=== PATIENT | male | born 1995 | race Caucasian/White ===

== ENCOUNTER 2021-08-21 03:55 | Emergency (ER) | payer OTHER, SELFPAY ==
[2021-08-21 03:56] VITALS: BP 140/54; PULSE 116; RESP 22; TEMP 36.8; O2SAT 97; BMI 34.0
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
--- NOTE | 2021-08-21 04:49 | PC.NURSE ---
Pt. is refusing any care other than having the scans done. Pt. screamed and yelled profanities at the doctor while he was trying to fix the wound.
== END 2021-08-21 05:03 | disposition home or self-care (01) ==
PROVIDERS: Emergency Provider Emergency Medicine
DX: S01.01XA Laceration without foreign body of scalp, initial encounter (principal); V47.6XXA Car passenger injured in collision with fixed or stationary object in traffic accident, initial encounter
CPT/HCPCS: 12004; 70450; 72125; 99282

== ENCOUNTER 2022-07-30 04:30 | Observation (INO) | payer SELFPAY ==
[2022-07-30] VITALS (7 sets, daily range): BP systolic 106–147; BP diastolic 65–88; PULSE 69–116; RESP 16–18; TEMP 36.5–37.7; O2SAT 95–98; BMI 31.7
--- NOTE | 2022-07-30 04:54 | CTR_ITS ---
PROCEDURE INFORMATION: Exam: CT Abdomen And Pelvis With Contrast Exam date and time: 07/30/2022 5:08 AM Age: 27 years old Clinical indication: Nausea and vomiting; Abdominal pain; Localized; Right lower quadrant (rlq); Patient HX: C/O rlq pain with n/v. ; Additional info: Abd pain TECHNIQUE: Imaging protocol: Computed tomography of the abdomen and pelvis with contrast. Radiation optimization: All CT scans at this facility use at least one of these dose optimization techniques: automated exposure control; mA and/or kV adjustment per patient size (includes targeted exams where dose is matched to clinical indication); or iterative reconstruction. Contrast material: OMNI 350; Contrast volume: 100 ml; Contrast route: INTRAVENOUS (IV); COMPARISON: No relevant prior studies available. RADIATION DOSE METRICS: Total DLP (mGy-cm): 820.63 FINDINGS: Lungs: The visualized lung bases are clear. Liver: Unremarkable. No enhancing mass. Gallbladder and bile ducts: No calcified gallstones or biliary dilation identified. Pancreas: Unremarkable with no suspicious mass. No ductal dilation. Spleen: The spleen is not enlarged. No suspicious enhancing mass is noted. Adrenal glands: Normal. No mass. Kidneys and ureters: No solid renal mass or hydronephrosis. Minute right renal cyst. Stomach and bowel: No small bowel obstruction or free air. No overt mucosal thickening. Appendix: The appendix is dilated and inflamed. There is moderate surrounding fat stranding. It dilates up to about 12 mm with appendicolith. No abscess or free air. Intraperitoneal space: See Appendix finding. Extremely minimal pelvic free fluid. Vasculature: No AAA or acute vascular lesion identified. Lymph nodes: No enlarged lymph nodes. Urinary bladder: Unremarkable as visualized. Reproductive: Unremarkable as visualized. Bones/joints: No acute fracture. Likely nonacute mild compressions at L3 and L2. Soft tissues: Tiny fat umbilical hernia. CT/CT abdomen pelvis w con* [id number] IMPRESSION: 1. Acute appendicitis with no abscess or free air. 2. A few mild lumbar compressions are likely nonacute. THIS REPORT CONTAINS FINDINGS THAT MAY BE CRITICAL TO PATIENT CARE. The findings were verbally communicated via telephone conference at 5:25 AM MARKETING COPYWRITER on 07/30/[address] Urbano. The findings were acknowledged and understood. COMMENTS: Consistent with the [employer]'s Incidental Findings Committee white paper (J Am Luis Fernando Radiol 2018): Any incidental renal lesion less than 1 cm or classified as too small to characterize, or any incidental cystic renal lesion characterized as simple-appearing, is likely benign. No follow-up imaging is recommended for these lesions per consensus recommendations based on imaging criteria.
--- NOTE | 2022-07-30 04:58 | ED_ITS ---
HPI - Abdominal Pain General: Chief Complaint: Abdominal Pain Stated Complaint: abdominal pain, vommiting, fever Time Seen by Provider: 07/30/22 04:52 Source: patient Mode of arrival: ambulatory Limitations: no limitations History of Present Illness: 19-year-old male states has been having right lower quadrant pain over the last day has also been having fevers he states his pain is worsening throughout the day its tender to touch. He states is worse with walking and has had no vomiting no diarrhea. Associated Symptoms: Reports fever(s); Denies dysuria Review of Systems Const: Reports: fever(s) Eyes: Denies: blurry vision or eye discomfort ENMT: Denies: throat pain or dental pain Card: Denies: chest pain Resp: Denies: dyspnea GI: Reports: abdominal pain : Denies: dysuria Musc: Denies: neck pain or back pain Skin/Breast: Denies: rash Neuro: Denies: headache(s) Psych: Denies: depression Casey/Lymph: Denies: easy bruising All/Imm: Denies: urticaria PFSH ED PFSH: Medical History (Updated 07/30/22 @ 05:29 by Brayden Urbano MD) No pertinent past medical history Social History Smoking and tobacco status: never smoked Physical Exam Const: COMMON NORMALS: no acute distress, patient oriented x3 and healthy appearing HENMT: COMMON NORMALS: normocephalic and atraumatic HEAD & SCALP: normocephalic and atraumatic Eye: COMMON NORMALS: Equal, round and reactive pupils present and EOMs intact bilaterally PUPIL: Yes Equal, round and reactive pupils present Neck/C-Spine: COMMON NORMALS: full ROM and supple Chest: COMMONS NORMALS: normal inspection of the chest and normal palpation of entire chest wall Resp: COMMON NORMALS: normal respiratory effort, No retractions, No use of accessory muscles and clear to auscultation bilaterally AUSCULTATION: clear to auscultation bilaterally Cardio: COMMON NORMALS: regular rate, regular rhythm and No murmurs present (Cardio) RATE: regular rate RHYTHM: regular rhythm GI: COMMON NORMALS: Normal to inspection, nondistended, normoactive bowel sounds present, Soft to palpation and no masses PALPATION: Yes Soft to palpation and Yes Tenderness to palpation present (GI) Details: RLQ Extremity: COMMON NORMALS: normal to inspection and full ROM Neuro: COMMON NORMALS: patient oriented x3, moves all extremities and no focal motor deficits Psych: COMMON NORMALS: mental status grossly normal, Normal thought process present and cooperative THOUGHT PROCESS: Normal thought process present Skin: COMMON NORMALS: no rashes or lesions noted and no wounds GENERAL SKIN EXAM: no rashes or lesions noted Course Vital Signs: Vital signs: Vital Signs Temperature 99.8 F H 07/30/22 04:42 Pulse Rate 116 H 07/30/22 04:42 Respiratory Rate 18 07/30/22 04:42 Blood Pressure 137/84 07/30/22 04:42 Pulse Oximetry 98 07/30/22 04:42 MDM - Abdominal Pain Medical Decision Making Patient presents with right lower quadrant pain consistent with appendicitis appendicitis shown on CT scan as well I talked to surgery and plan on taking patient to the OR will place on antibiotics. Lab Data 07/30/22 05:07 07/30/22 05:07 Labs/Radiology: Radiology Impressions Abdomen/Pelvis CT 07/30/22 04:54 IMPRESSION: 1. Acute appendicitis with no abscess or free air. 2. A few mild lumbar compressions are likely nonacute. THIS REPORT CONTAINS FINDINGS THAT MAY BE CRITICAL TO PATIENT CARE. The findings were verbally communicated via telephone conference at 5:25 AM MANAGER RESPIRATORY CARE on 07/30/[address] Urbano. The findings were acknowledged and understood. COMMENTS: Consistent with the [employer]'s Incidental Findings Committee white paper (J Am Luis Fernando Radiol 2018): Any incidental renal lesion less than 1 cm or classified as too small to characterize, or any incidental cystic renal lesion characterized as simple-appearing, is likely benign. No follow-up imaging is recommended for these lesions per consensus recommendations based on imaging criteria. Laboratory Results WBC 15.6 10^3/uL (4.0-10.0) H 07/30/22 05:07 RBC 4.61 10^6/uL (4.1-5.3) 07/30/22 05:07 Hgb 14.6 g/dL (11.7-16.6) 07/30/22 05:07 Hct 43.6 % (42.0-52.0) 07/30/22 05:07 MCV 94.6 fl (80-94) H 07/30/22 05:07 MCH 31.7 pg (28.0-34.0) 07/30/22 05:07 MCHC 33.5 g/dL (30.0-36.0) 07/30/22 05:07 RDW 11.9 % (12.1-15.1) L 07/30/22 05:07 Plt Count 345 10^3/cmm (130-400) 07/30/22 05:07 MPV 9.3 fL (7.4-10.4) 07/30/22 05:07 Neut % (Auto) 79.6 % 07/30/22 05:07 Lymph % (Auto) 10.8 % 07/30/22 05:07 [place] % (Auto) 8.8 % 07/30/22 05:07 Eos % (Auto) 0.1 % 07/30/22 05:07 Baso % (Auto) 0.4 % 07/30/22 05:07 Neut # (Auto) 12.38 10^3/uL (1.8-7.7) H 07/30/22 05:07 Lymph # (Auto) 1.7 10^3/uL (0.8-4.8) 07/30/22 05:07 [place] # (Auto) 1.4 10^3/uL (0.2-0.9) H 07/30/22 05:07 Eos # (Auto) 0.0 10^3/uL (0.0-0.8) 07/30/22 05:07 Baso # (Auto) 0.1 10^3/uL (0.0-0.1) 07/30/22 05:07 Nucleated RBC % (auto) 0 % 07/30/22 05:07 Nucleated RBCs # 0.0 /100WBC 07/30/22 05:07 Discharge Plan Discharge Patient Disposition: Admitted As Inpatient Clinical Impression: Acute appendicitis Condition: Stable Coding Level of Care Code ED Web Project Manager for Jen Fwd Exam Comprehensive
[2022-07-30] MEDS: iohexol 350 mg/mL 500 mL Btl (per mL) IV (05:11)
[2022-07-30 05:15] LABS: Basophils # 0.1 10^3/uL (0.0-0.1); Basophils % 0.4 %; Eosinophils % 0.1 %; Hematocrit 43.6 % (42.0-52.0); Hemoglobin 14.6 g/dL (11.7-16.6); Lymphocytes # 1.7 10^3/uL (0.8-4.8); Lymphocytes % 10.8 %; Mean Corpuscular HGB Conc 33.5 g/dL (30.0-36.0); Mean Corpuscular Hemoglobin 31.7 pg (28.0-34.0); Mean Corpuscular Volume 94.6 fl (80-94); Mean Platelet Volume 9.3 fL (7.4-10.4); Monocytes # 1.4 10^3/uL (0.2-0.9); Monocytes % 8.8 %; Neutrophils # 12.38 10^3/uL (1.8-7.7); Neutrophils % 79.6 %; Nucleated Red Blood Cells % 0 %; Platelet Count 345 10^3/cmm (130-400); Red Blood Count 4.61 10^6/uL (4.1-5.3); Red Cell Distribution Width 11.9 % (12.1-15.1); White Blood Count 15.6 10^3/uL (4.0-10.0)
[2022-07-30] MEDS: acetaminophen 500 mg Tablet 1000 MG PO (05:21)
[2022-07-30] MEDS: ondansetron 2 mg/ML SDV 2 mL 4 MG IVP (05:21)
[2022-07-30 05:40] LABS: Alanine Aminotransferase 30 U/L (0-41); Albumin Level 4.5 g/dL (3.5-5.2); Alkaline Phosphatase 151 U/L (40-130); Aspartate Amino Transferase 17 U/L (0-40); Blood Urea Nitrogen 8 mg/dL (6-20); Calcium 9.5 mg/dL (8.5-10.5); Carbon Dioxide 25 mmol/L (22-29); Chloride 99 mmol/L (98-107); Creatinine Clr Calc Pharmacy 140.7411; Globulin 3.2 g/dL (1.3-4.6); Glomerular Filtration Rate 100.5 mL/min (90-130); Glucose 104 mg/dL (65-115); Lipase 23 U/L (13-60); Osmolality Calculated 279 mOsm/kg (285-295); Sodium 135 mmol/L (136-145); Total Bilirubin 0.6 mg/dL (0.15-1.2); Total Protein 7.7 g/dL (6.6-8.7)
[2022-07-30] MEDS: piperacillin-tazobactam 3.375 GM in sodium chloride 0.9% (plus) 50 ML IV ×2 (05:44→14:25)
[2022-07-30 05:48] LABS: Anion Gap 15.3 (5-19); Potassium 4.3 mmol/L (3.5-5.1)
--- NOTE | 2022-07-30 06:31 | PC.NURSE ---
Pt went to surgery with surgery nurse
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
[2022-07-30] MEDS: sodium chloride 0.9% 1,000 ML 30 ML IV ×2 (06:56→11:05)
--- NOTE | 2022-07-30 07:11 | P.HP_ITS ---
Providers/Chief Complaint Admitting Physician: Lyndsey Wilson MD Primary Care Provider: Favian Mayberry DO Chief Complaint: abdominal pain, vommiting, fever History of Present Illness Leonel Eagle is a 27 year old male who presents with 24 hours of lower abdominal pain, nausea, vomiting, and diarrhea. Pain has persisted and he feels it now more on the right side. It is worse with movement. Review of Systems Const: Reports: chills; Denies: fever(s) Card: Denies: chest pain Resp: Denies: dyspnea GI: Reports: abdominal pain, nausea, vomiting and diarrhea Casey/Lymph: Denies: easy bleeding Medications/Allergies Home Medications Medication Instructions Recorded Confirmed Last Taken Type silver sulfadiazine 1 % topical 1 applic topical BID #50 grams 08/21/19 06/21/22 Unknown Rx cream (Silvadene) methocarbamol 750 mg tablet 750 mg PO Q6H PRN spasms #20 tabs 08/21/21 06/21/22 Unknown Rx escitalopram oxalate 10 mg tablet 10 - 20 mg PO DAILY #180 tabs 06/21/22 06/21/22 Unknown Rx Allergies Allergy/AdvReac Type Severity Reaction Status Date / Time naproxen Allergy leg Verified 08/28/21 18:01 stiffness PFSH Acute PFSH: Medical History (Updated 07/30/22 @ 05:29 by Brayden Urbano MD) No pertinent past medical history Social History Smoking and tobacco status: never smoked Vitals/I&O/Wt Last Vital Signs Temp 98.6 F 07/30/22 06:30 Pulse 85 07/30/22 06:30 Resp 18 07/30/22 06:30 BP 147/88 07/30/22 06:30 Pulse Ox 96 07/30/22 06:30 O2 Del Method 07/30/22 06:30 07/29/22 07/30/22 07/30/22 22:59 06:59 14:59 Intake Total 50 / 50 Balance 50 / 50 Weight last 48 hrs Weight 215 lb Physical Exam Const: COMMON NORMALS: no acute distress and alert NUTRITIONAL APPEARANCE: overweight HENMT: HEAD & SCALP: normocephalic and atraumatic Resp: COMMON NORMALS: normal respiratory effort and clear to auscultation bilaterally Cardio: COMMON NORMALS: regular rate, regular rhythm, S1 normal heart sound present and S2 normal heart sound present GI: INSPECTION: No abdominal distension AUSCULTATION: Yes Hypoactive bowel sounds present PALPATION: Yes Soft to palpation and Yes Tenderness to palpation present (GI) Details: RLQ (Focal tenderness to percussion) Extremity: COMMON NORMALS: no clubbing, cyanosis or edema Neuro: COMMON NORMALS: moves all extremities, no focal motor deficits and no sensory deficits noted Psych: COMMON NORMALS: mental status grossly normal and normal affect Data 07/30/22 05:07 07/30/22 05:07 CT Abd/Pel: Radiologist's impression: Radiology Impressions Abdomen/Pelvis CT 07/30/22 04:54 IMPRESSION: 1. Acute appendicitis with no abscess or free air. 2. A few mild lumbar compressions are likely nonacute. THIS REPORT CONTAINS FINDINGS THAT MAY BE CRITICAL TO PATIENT CARE. The findings were verbally communicated via telephone conference at 5:25 AM LINE ERECTOR on 07/30/[address] Urbano. The findings were acknowledged and understood. COMMENTS: Consistent with the [employer]'s Incidental Findings Committee white paper (J Am Luis Fernando Radiol 2018): Any incidental renal lesion less than 1 cm or classified as too small to characterize, or any incidental cystic renal lesion characterized as simple-appearing, is likely benign. No follow-up imaging is recommended for these lesions per consensus recommendations based on imaging criteria. A&P Assessment and plan (1) Acute appendicitis: Acute appendicitis with appendicolith and focal peritonitis. I discussed with the patient recommendation for laparoscopic appendectomy. I also discussed with him the option of medical treatment including risk of treatment failure and recurrent appendicitis. I discussed with him the operative risks of infection, bleeding, damage to adjacent organs, and the possibility of conversion to an open procedure. I discussed expected postoperative course and recovery. All questions were answered to his satisfaction. He would like to proceed with laparoscopic appendectomy. Attestations Medical Necessity Statement*: Leonel Eagle's hospital stay will be less than 2 midnights for appendectomy and recovery to treat acute appendicitis. Coding Level of Care Code Acute Control System Manager for [facility] Diagnoses Acute appendicitis K35.80
[2022-07-30 07:24] LABS: Add Urine Microscopic? YES; Bilirubin Urine Neg (Negative); Blood Urine Neg (Negative); Glucose Urine UA Norm (Normal); Ketones Urine 1+ (Negative); Leukocyte Esterase Urine Negative (Negative); Nitrate Urine Negative (Negative); Protein Urine 1+ (Negative); Specific Gravity, Urine 1.005 (1.005-1.030); Sulfosalicylic Acid Urine Positive (Negative); Urine Appearance Clear (CLEAR); Urine Color Yellow (Yellow); Urobilinogen Urine Norm (Negative); WBC Urine 0-4 /hpf (0-5); pH Urine 8 (5-7)
[2022-07-30 07:25] LABS: Add Urine Culture? No; Bacteria Urine TRACE /hpf
--- NOTE | 2022-07-30 09:28 | PM.OP ---
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 Brief History: Leonel Eagle is a 27-year-old patient who presented with signs and symptoms of acute appendicitis, which was corroborated on imaging. Procedure: The patient was brought to the operating room and placed on the table in the supine position. A general anesthetic was given, and the patient was intubated. Hair was removed from the surgical field with clippers. The abdomen was prepped with ChloraPrep and sterilely draped. The skin in the inferior umbilicus was infiltrated with 0.5% Marcaine. A #11 blade was used to make an incision in the inferior umbilicus. A straight laparoscope was used within a 5 mm insufflating trocar to obtain optical entry. Pneumoperitoneum was established through the obturator, then the trocar was advanced into the abdomen. A 5 mm bladeless suprapubic trocar and a 12 mm bladeless left lower quadrant trocar were placed under laparoscopic visualization after injecting Marcaine at each site. The appendix was seen to be acutely inflamed. It was retracted with a grasper and adhesions were bluntly mobilized from it. The appendiceal base was readily visible. It was cleared with laparoscopic [place] and a [place] dissector. A window was made in the mesentery at the base of the appendix, and the mesoappendix was divided with a single firing of the Endo WATSON stapler using a vascular load. The appendix was then divided with a reload of the Endo WATSON stapler. Appendix was placed in a specimen pouch and brought out through the left lower quadrant trocar site. The trocar was replaced. Staple lines were inspected and appeared secure and hemostatic. Right lower quadrant was then irrigated with saline. There was noted to be turbid fluid in the pelvis which was aspirated. It was then irrigated with saline until the effluent was clear. Left lower quadrant trocar was removed and fascia closed with 0 Vicryl using a Juan Daisy. Suprapubic trocar was removed under laparoscopic visualization. Scope was removed and pneumoperitoneum was released. The left lower quadrant trocar site was irrigated with saline. Skin was closed with subcuticular 4-0 Monocryl. The wounds were cleaned and closures were reinforced with Dermabond. The patient was awakened, extubated, transferred recovery in satisfactory condition. At the end the case, sharps and sponge counts were reported to be correct.
--- NOTE | 2022-07-30 10:20 | SUR.PHASEI ---
1020 Pt transfered to room 268. Awake , alert, and oriented X 3. Pt transfered self to bed with no assistance. VSS. Family at bedside.
[2022-07-30] MEDS: escitalopram 10 mg Tablet PO (10:54)
--- NOTE | 2022-07-30 14:46 | PM.DCS ---
Discharge Providers Date of Admission: 07/30/22 08:58 Date of Discharge: July 30, 2022 Attending Provider at Admission: Lyndsey Wilson MD Attending Provider at Discharge: Lyndsey Wilson MD Primary Care Provider: Favian Mayberry DO Diagnoses at Discharge Discharge Diagnosis (1) Acute appendicitis: Status: Acute Reason for Visit Reason for Visit: abdominal pain, vommiting, fever Brief History: Leonel Eagle is a 27-year-old patient who presented with signs and symptoms of acute appendicitis. Hospital Course Hospital Course The patient was taken to the operating room for urgent appendectomy. He was noted to have gangrene in the midportion of the appendix without perforation. He underwent appendectomy without incident and was admitted postoperatively to the inpatient floor. He was tolerating regular diet, ambulating without difficulty, and with good pain control within several hours postoperatively. He was discharged home in satisfactory condition. Physical Exam Const: COMMON NORMALS: no acute distress and alert Resp: COMMON NORMALS: normal respiratory effort and clear to auscultation bilaterally AUSCULTATION: clear to auscultation bilaterally Cardio: COMMON NORMALS: regular rate and regular rhythm RATE: regular rate RHYTHM: regular rhythm GI: COMMON NORMALS: Soft to palpation INSPECTION: Yes incision (clean, dry, intact) PALPATION: Yes Soft to palpation Neuro: SENSORIUM/ORIENTATION: Yes alert Discharge Data Studies Completed and Pending Completed Studies During Hospitalization Category Date Time Status CT abdomen pelvis w con* [id number] Stat Cat Scan 07/30/22 04:54 Completed Pending at discharge Category Date Time Status Chlamydia / Gonorrhea Panel Stat Lab 07/30/22 06:40 Ordered Trichomonas Vaginalis Male Routine Lab 07/30/22 06:39 Ordered Pathology: Surgical [PTH] Routine Pth 07/30/22 08:45 Ordered Radiology Impressions Abdomen/Pelvis CT 07/30/22 04:54 IMPRESSION: 1. Acute appendicitis with no abscess or free air. 2. A few mild lumbar compressions are likely nonacute. THIS REPORT CONTAINS FINDINGS THAT MAY BE CRITICAL TO PATIENT CARE. The findings were verbally communicated via telephone conference at 5:25 AM ROTARY FILTER OPERATOR on 07/30/[address] Urbano. The findings were acknowledged and understood. COMMENTS: Consistent with the [employer]'s Incidental Findings Committee white paper (J Am Luis Fernando Radiol 2018): Any incidental renal lesion less than 1 cm or classified as too small to characterize, or any incidental cystic renal lesion characterized as simple-appearing, is likely benign. No follow-up imaging is recommended for these lesions per consensus recommendations based on imaging criteria. Laboratory Results WBC 15.6 10^3/uL (4.0-10.0) H 07/30/22 05:07 RBC 4.61 10^6/uL (4.1-5.3) 07/30/22 05:07 Hgb 14.6 g/dL (11.7-16.6) 07/30/22 05:07 Hct 43.6 % (42.0-52.0) 07/30/22 05:07 MCV 94.6 fl (80-94) H 07/30/22 05:07 MCH 31.7 pg (28.0-34.0) 07/30/22 05:07 MCHC 33.5 g/dL (30.0-36.0) 07/30/22 05:07 RDW 11.9 % (12.1-15.1) L 07/30/22 05:07 Plt Count 345 10^3/cmm (130-400) 07/30/22 05:07 MPV 9.3 fL (7.4-10.4) 07/30/22 05:07 Neut % (Auto) 79.6 % 07/30/22 05:07 Lymph % (Auto) 10.8 % 07/30/22 05:07 [place] % (Auto) 8.8 % 07/30/22 05:07 Eos % (Auto) 0.1 % 07/30/22 05:07 Baso % (Auto) 0.4 % 07/30/22 05:07 Neut # (Auto) 12.38 10^3/uL (1.8-7.7) H 07/30/22 05:07 Lymph # (Auto) 1.7 10^3/uL (0.8-4.8) 07/30/22 05:07 [place] # (Auto) 1.4 10^3/uL (0.2-0.9) H 07/30/22 05:07 Eos # (Auto) 0.0 10^3/uL (0.0-0.8) 07/30/22 05:07 Baso # (Auto) 0.1 10^3/uL (0.0-0.1) 07/30/22 05:07 Nucleated RBC % (auto) 0 % 07/30/22 05:07 Nucleated RBCs # 0.0 /100WBC 07/30/22 05:07 Sodium 135 mmol/L (136-145) L 07/30/22 05:07 Potassium 4.3 mmol/L (3.5-5.1) 07/30/22 05:07 Chloride 99 mmol/L (98-107) 07/30/22 05:07 Carbon Dioxide 25 mmol/L (22-29) 07/30/22 05:07 Anion Gap 15.3 (5-19) 07/30/22 05:07 BUN 8 mg/dL (6-20) 07/30/22 05:07 Creatinine 0.9 mg/dL (0.7-1.2) 07/30/22 05:07 GFR Calculation 100.5 mL/min (90-130) 07/30/22 05:07 Glucose 104 mg/dL (65-115) 07/30/22 05:07 Calculated Osmolality 279 mOsm/kg (285-295) L 07/30/22 05:07 Calcium 9.5 mg/dL (8.5-10.5) 07/30/22 05:07 Total Bilirubin 0.6 mg/dL (0.15-1.2) 07/30/22 05:07 AST 17 U/L (0-40) 07/30/22 05:07 ALT 30 U/L (0-41) 07/30/22 05:07 Alkaline Phosphatase 151 U/L (40-130) H 07/30/22 05:07 Total Protein 7.7 g/dL (6.6-8.7) 07/30/22 05:07 Albumin 4.5 g/dL (3.5-5.2) 07/30/22 05:07 Globulin 3.2 g/dL (1.3-4.6) 07/30/22 05:07 Lipase 23 U/L (13-60) 07/30/22 05:07 Urine Color Yellow (Yellow) 07/30/22 06:45 Urine Appearance Clear (CLEAR) 07/30/22 06:45 Urine pH 8 (5-7) H 07/30/22 06:45 Ur Specific [place] 1.005 (1.005-1.030) 07/30/22 06:45 Urine Protein 1+ (Negative) H 07/30/22 06:45 Urine Glucose (UA) Norm (Normal) 07/30/22 06:45 Urine Ketones 1+ (Negative) H 07/30/22 06:45 Urine Blood Neg (Negative) 07/30/22 06:45 Urine Nitrate Negative (Negative) 07/30/22 06:45 Urine Bilirubin Neg (Negative) 07/30/22 06:45 Prot Sulfosalicylic Acd Positive (Negative) 07/30/22 06:45 Urine Urobilinogen Norm mg/dL (Negative) 07/30/22 06:45 Ur Leukocyte Esterase Negative (Negative) 07/30/22 06:45 Urine RBC None /hpf (0-2) 07/30/22 06:45 Urine WBC 0-4 /hpf (0-5) H 07/30/22 06:45 Ur Squamous Epith Cells None /hpf (0-5) 07/30/22 06:45 Amorphous Sediment Not Reportable 07/30/22 06:45 Urine Bacteria Trace /hpf (NONE) 07/30/22 06:45 Procedures Performed Procedures Operation Date: 07/30/22 06:20 Actual Procedure Side Surgeon Laparoscopic Appendectomy Not Applicable Lyndsey Wilson MD Vitals Last Vital Signs Temp 98.4 F 07/30/22 10:03 Pulse 69 07/30/22 10:03 Resp 16 07/30/22 10:03 BP 106/65 07/30/22 10:03 Pulse Ox 95 07/30/22 10:03 O2 Del Method 07/30/22 10:39 O2 Flow Rate 6 07/30/22 09:49 Discharge Plan Discharge Patient Disposition: Home Condition: Stable Prescriptions: New oxycodone 5 mg Tablet 5 mg PO Q4H PRN (Reason: Moderate Pain) Qty: 15 0RF Augmentin 500-125 mg tablet 1 tab PO Q12H Qty: 14 0RF Continued escitalopram oxalate 10 mg tablet 10 - 20 mg PO DAILY Qty: 180 1RF Discharge Orders: Discharge Order (Routine); Ordered 07/30/22 Ordered By: Lyndsey Wilson Referrals: Tevin Mcgrath DO [Physician] - 7-10 days (Please contact Dr. Mcgrath's office Monday morning to schedule a hospital follow up appointment within 7-10 days. ) Favian Mayberry DO [Primary Care Provider] - 1 week (Please call Dr. Mayberry' office Monday morning to schedule a hospital follow up appointment within 1 week. ) Discharge Diet: Advance as tolerated Discharge Activity: Limit activity as instructed Patient Instructions: Oxycodone/Acetaminophen (By mouth), Amoxicillin/Clavulanate Potassium (By mouth), Laparoscopic Appendectomy (DC), Opioid Safety, Post Anesthesia Care Activity Restrictions/Additional Instructions: Your incisions have surgical glue on them. Do not peel or pick at it. Do not apply any lotions or ointments over the glue. You may shower. Do not submerge the incisions in tub or pool for 1 week. No lifting, pushing, or pulling over 10 pounds for 2 weeks. No handling heavy loads over 50 pounds for 4 weeks. [address] until you can use the brake without pain and are off prescription pain medications. Use nonprescription pain relievers as first-line treatment. You can use the prescription pain reliever for pain that is not manageable with nonprescription medication. If you use the prescription pain reliever, take a stool softener to avoid constipation. Discharge Attestations Time Spent in Discharge Care*: less than 30 min Quality Metrics Clinical Quality Measures [ No reported AMI, CVA or VTE this stay] Coding Level of Care Code Acute Chg FW DC note Diagnoses Acute appendicitis K35.80
--- NOTE | 2022-08-01 07:14 | ANE.PACU2 ---
Inpatient post-anesthesia follow up: Airway intact: Yes Vital signs: Temperature 98.4 F Pulse Rate 69 Respiratory Rate 16 Blood Pressure 106/65 Pulse Oximetry 95 Oxygen Delivery Me thod Room Air Oxygen Flow Rate 6 Fraction of Inspir ed Oxygen Hydration adequate: Yes Nausea and vomiting: No Pain level: 3 Mental status: Baseline
== END 2022-07-30 17:44 | disposition home or self-care (01) ==
LOC: ER 05:29 → OR 06:15 → MEDSURG 08:58
PROVIDERS: Admitting Provider Surgery; Emergency Provider Emergency Medicine; PCP Family Medicine; Visit Provider Surgery
PROC: 0DTJ4ZZ Resection of Appendix, Percutaneous Endoscopic Approach (ICD-10-PCS; CPT 44970; principal; 2022-07-30 06:20)
DX: K35.33 Acute appendicitis with perforation, localized peritonitis, and gangrene, with abscess (principal)
CPT/HCPCS: 44970; 12345; 74177; 80053; 81001; 83690; 85025; 88304; 96365; 99285; G0378; J0330; J1100; J1170; J1200; J2250; J2370; J2405; J2543; J2704; J2765; J3010; J3490; J7030; Q9967

== ENCOUNTER 2024-10-25 10:09 | Emergency (ER) | payer OTHER, SELFPAY ==
[2024-10-25 10:16] VITALS: BP 149/90; PULSE 82; RESP 17; TEMP 36.5; O2SAT 98; BMI 32.5
--- NOTE | 2024-10-25 10:29 | XR_ITS ---
WS: [id number] XR hand RT min 3V* [id number] REASON FOR EXAM: trauma; index/middle fingers FINDINGS: No acute fracture identified. Joint spaces of the right hand are intact and well preserved. No radiopaque soft tissue foreign body. XR/XR hand RT min 3V* [id number] IMPRESSION: No acute bone or joint abnormality.
--- NOTE | 2024-10-25 10:29 | W.ED.UPPEXIN ---
HPI - Extremity Injury (Upper) General: Chief Complaint: Extremity Injury, Upper Stated Complaint: smashed fingers right hand Time Seen by Provider: 10/25/24 10:18 Source: patient Mode of arrival: ambulatory Limitations: no limitations History of Present Illness: Patient is a 29-year-old male presents to ED today for evaluation of right finger injury that he sustained just prior to arrival after he crushed them between steel beams while welding. Last tetanus unknown. complaint: injury to: right and finger Onset (ago): hour(s) Other Extremity Injury: Right: fingers Other injuries: none Place: home Severity: moderate Relieving factors: none Exacerbating factors: none Context: direct blow and crush Associated symptoms: Reports no associated symptoms Treatments prior to arrival: bandage Related Data Home Medications ?Medication ?Instructions ?Recorded ?Confirmed No Known Home Medications 10/25/24 10/25/24 Allergies Allergy/AdvReac Type Severity Reaction Status Date / Time naproxen Allergy leg Verified 08/08/23 15:27 stiffness Review of Systems Musc: Reports: extremity pain (R fingers) and extremity swelling (R fingers) Skin/Breast: Reports: other (skin avulsions/abrasions R index/middle fingers) Neuro: Denies: numbness in extremities or sensory changes PFS ED PFSH: Medical History Acute appendicitis No pertinent past medical history Social History Smoking and tobacco/nicotine status: never used tobacco/nicotine Physical Exam Const: COMMON NORMALS: no acute distress, average body habitus, no limitations, healthy appearing, alert and well nourished GENERAL APPEARANCE: cooperative Extremity: COMMON NORMALS: full ROM and capillary refill normal GENERAL: Yes normal exam except as noted RIGHT UPPER EXTREMITY: Yes hand & digits Right hand and digits: Yes ROM exam (normal), Yes neurovascular exam (normal) and Yes tendon exam (normal) OTHER: small non-repairable abrasion R index finger; no bony deformity; no nail damage skin avulsion R middle finger with no repairable deep laceration; subungual hematoma present that was evacuated; NV intact Neuro: COMMON NORMALS: moves all extremities, no focal motor deficits and no sensory deficits noted SENSORIUM/ORIENTATION: Yes alert Course Vital Signs: Vital signs: Vital Signs Temperature 97.7 F 10/25/24 10:16 Pulse Rate 73 10/25/24 10:50 Respiratory Rate 17 10/25/24 10:16 Blood Pressure 153/104 10/25/24 10:50 Pulse Oximetry 99 10/25/24 10:50 Oxygen Delivery Me thod Room Air 10/25/24 10:50 MDM - Extremity Injury (Upper) Medical Decision Making XR radiology report was unremarkable. Personal interpretation questions the presence of a tuft fracture involving his right index distal phalanx. His wounds were copiously irrigated. Skin avulsion flap was secured with steri-strips. He was offered/recommended antibiotics but declines. He was recommended orthopedic follow-up but declines. Return precautions discusssed. Medical Records I reviewed the patient's medical records. Lab Data Radiology Impressions Hand X-Ray 10/25/24 10:29 IMPRESSION: No acute bone or joint abnormality. All radiology interpretation(s) finalized by discharge Discharge Plan Discharge Patient Disposition: Home Clinical Impression: Crushing injury of right index finger, Crushing injury of right middle finger, Subungual hematoma of right middle finger, Avulsion of skin of finger without complication Condition: Stable Prescriptions: No Action No Known Home Medications Discharge Orders: Discharge ED (Routine); Ordered 10/25/24 Ordered By: Kimberly White Referrals: Favian Mayberry DO [Primary Care Provider] - Activity Restrictions/Additional Instructions: As we discussed, monitor wounds for signs of infection such as redness, swelling, increased pain, streaking on your hand, discharge, or any other concerns you may have. Please seek medical re-evaluation if these occur. You are recommended prophylactic antibiotics but you have declined. I have also recommended you follow-up with orthopedics but you have also declined this. Tetanus was updated today. Print Language: Lithuanian Coding Level of Care Code ED Cloud Solutions Architect for Jen Kennedy
[2024-10-25] MEDS: tetanus-dipt-pertussis 0.5 mL SDV IM (10:40)
[2024-10-25 10:50] VITALS: BP 153/104; PULSE 73; O2SAT 99
[2024-10-25 11:54] VITALS: BP 140/90; PULSE 112; RESP 20; O2SAT 99
== END 2024-10-25 11:56 | disposition home or self-care (01) ==
PROVIDERS: Emergency Provider Physician Assistant; PCP Family Medicine
DX: S60.131A Contusion of right middle finger with damage to nail, initial encounter (principal); S61.212A Laceration without foreign body of right middle finger without damage to nail, initial encounter; W23.1XXA Caught, crushed, jammed, or pinched between stationary objects, initial encounter; Z23 Encounter for immunization
CPT/HCPCS: 73130; 90715; 99283